=== PATIENT | male | born 1965 | race American Indian/Alaskan Native ===

== ENCOUNTER 2018-04-19 07:50 | Emergency (ER) | payer OTHER ==
[2018-04-19 08:01] VITALS: BP 180/101
[2018-04-19] MEDS ORDERED: TORADOL IM ONE (08:17)
--- NOTE | 2018-04-19 09:14 | XRay Report ---
CERVICAL SPINE, 3 views: History: Neck pain. Findings: The vertebral bodies, disk spaces, posterior elements and prevertebral soft tissues are unremarkable. The dens is intact. No acute fracture or malalignment is identified. Minimal cervical spondylosis is noted. Impression: 1. No evidence for acute injury to the cervical spine.
--- NOTE | 2018-04-19 09:14 | XRay Report ---
LUMBOSACRAL SPINE, 3 VIEWS: History: Back pain Findings: The vertebral bodies, disk spaces and posterior elements are intact. No compression deformity or malalignment. The SI joints are symmetric and unremarkable. Previous vertebroplasty changes at L1 are noted. Impression: 1. No evidence for acute injury to the lumbar spine.
--- NOTE | 2018-04-19 09:14 | XRay Report ---
LEFT KNEE, 3 views: History: Pain. The bony architecture is intact without evidence of fracture or dislocation. No significant soft tissue abnormality is seen. IMPRESSION: Normal left knee.
--- NOTE | 2018-04-19 09:15 | XRay Report ---
LEFT ELBOW, 3 views: History: left elbow pain. The bony architecture is intact without evidence of fracture or dislocation. No significant soft tissue abnormality is seen. IMPRESSION: Normal left elbow.
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
== END 2018-04-19 09:47 | disposition home or self-care (01) ==
LOC: ED 07:50
DX: M25.562 Pain in left knee (principal); R51 Headache; M54.2 Cervicalgia; M25.522 Pain in left elbow; M54.5 Low back pain; V89.2XXA Person injured in unspecified motor-vehicle accident, traffic, initial encounter; Y93.89 Activity, other specified; Y92.410 Unspecified street and highway as the place of occurrence of the external cause; Y99.8 Other external cause status
CPT/HCPCS: 72040; 72100; 73080; 73562; 96372; 99283; J1885